=== PATIENT | female | born 1970 | race Caucasian/White ===

== ENCOUNTER 2016-07-20 21:11 | Emergency (ER) | payer BC, OTHER ==
[2016-07-20 21:18] VITALS: TEMP 98.1; BMI 28.3
--- NOTE | 2016-07-20 21:44 | PDOC ---
History of Present Illness - General Chief Complaint: Chest Pain Stated Complaint: DIZZYNESS/PALPATIONS Time Seen by Provider: 07/20/16 21:24 History Source: Patient, Significant Other Exam Limitations: No Limitations - History of Present Illness Initial Comments: 07/20/16 22:11 45yo Female patient presents to ED c/o dizziness, chest tightness, palpitations approximately 1 hr ago. Patient states while sitting on couch watching tv, she experienced a sudden onset of a malone from her shoulder to her head, she stood up adn immediately felt dizzy. Patient states she looked in the mirror and she was pale. At this time she called her boyfriend, who rushed home from work. Boyfriend states patient was panicking and extremely anxious so he brought her to ED for evaluation. Patient denies CP, Abd pain, back pain, n/v/d, fever, constipation, sweating, confusion, weakness, or any other complaints at this time. LNMP: Jul 09, 2016 Presenting Symptoms: Dizziness, Near-Syncope Timing/Duration: reports: gone now Severity/Quality: reports: tightness (chest) Location: reports: shoulder Chest Pain Radiation: reports: neck, other (head) Activities at Onset: reports: no specific activity Prior Chest Pain/Cardiac Workup: reports: No prior chest pain, No prior cardiac workup Modifying Factors: worse with: antacids, breathing, coughing, defecating, eating , exercise, lying down, morphine, movement, nitroglycerin, oxygen, palpation, rest, other Nitro Today/Relief: No: no nitro taken today, 0.4 mg x 1, 0.4 mg x 2, 0.4 mg x 3 , 0.4 mg x 4, provided by EMS, provided by ED, provided at home, no relief, mild relief, complete relief Beta Dino given by EMS (Core Measure): No Beta Dino taken at Home (Core Measure): No Beta Dino Contraindications (Core Measure): No: Not Prescribed, Allergy, Bradycardia (HR <60bpm), Advanced Heart Block, Pacemaker, Other Beta Dino indicated at this time? (Core Measure): No Associated Symptoms: Yes: Chest Pain/pressure, Dizziness, Headache, Palpitations. No: Abdominal pain, Back Pain, Cough, Diaphoresis, Edema, Fatigue , Fever/chills, Heartburn, Loss of Appetite, Nausea, Rash, Shortness of Breath, Swelling/lump in chest, Syncope, Vomiting, Weakness Past History - Travel Traveled outside of the country in the last 30 days: No Close contact w/someone who was outside of country & ill: No - Past Medical History Allergies/Adverse Reactions: Allergies Allergy/AdvReac Type Severity Reaction Status Date / Time No Known Allergies Allergy Verified 07/20/16 21:16 Home Medications: Ambulatory Orders No Home Medications 0 dose .ROUTE UTDICT 08/17/13 Other medical history: denies - Surgical History Abdominal Surgery: Yes ( x4) - Immunization History Immunization Up to Date: Yes - Psycho/Social/Smoking Cessation Hx Anxiety: No Suicidal Ideation: No Smoking Status: Yes Smoking History: Current every day smoker Number of Cigarettes Smoked Daily: 10 Information on smoking cessation initiated: No Hx Alcohol Use: No Drug/Substance Use Hx: No Substance Use Type: None Cardiac Specific PMH - Complaint Specific PMHX Abdominal Aortic Aneurysm: No Angina: No Cardiac Arrhythmia: No Cardiac Stent: No GERD: No Myocardial Infarction: No Pacemaker: No Pulmonary Embolus: No Valvular Heart Disease: No Peripheral Vascular Disease: No Review of Systems - Review of Systems Able to Perform ROS?: Yes Is the patient limited German proficient: No Constitutional: No: Chills, Fever Respiratory: No: Cough, Shortness of Breath, Stridor, Wheezing Cardiac (ROS): Yes: Palpitations, Chest Tightness. No: Chest Pain ABD/GI: No: Abdominal Distended, Constipated, Diarrhea, Nausea, Rectal Bleeding , Vomiting, Abdominal cramping : No: Burning, Dysuria, Discharge, Frequency, Flank Pain, Hematuria, Pain Musculoskeletal: No: Back Pain, Muscle Pain, Muscle Weakness, Neck Pain Integumentary: No: Bruising, Erythema, Flushing, Pruritus, Rash, Sweating Neurological: Yes: Headache, Dizziness. No: Numbness, Paresthesia, Seizure, Tingling, Tremors, Weakness, Ataxia Psychiatric: Yes: Anxiety. No: Depression Endocrine: No: Excessive Sweating Hematologic/Lymphatic: No: Easy Bleeding, Easy Bruising All Other Systems: Reviewed and Negative *Physical Exam - Vital Signs Last Vital Signs Temp Pulse Resp BP Pulse Ox 98.1 F 98 H 20 161/85 99 07/20/16 21:16 07/20/16 21:16 07/20/16 21:16 07/20/16 21:16 07/20/16 21:16 - Physical Exam General Appearance: Yes: Nourished, Appropriately Dressed. No: Apparent Distress, Mild Distress, Moderate Distress, Severe Distress HEENT: positive: EOMI, AVE, Normal ENT Inspection, Normal Voice, Symmetrical, TMs Normal, Pharynx Normal. negative: Nasal Congestion, Rhinorrhea, Sinus Tenderness, TM Bulging, TM Dull, TM Erythema Neck: positive: Trachea midline, Supple Respiratory/Chest: positive: Lungs Clear, Normal Breath Sounds. negative: Respiratory Distress, Labored Respiration Cardiovascular: positive: Regular Rhythm, Regular Rate. negative: Diastolic Murmur, Systolic Murmur, Irregularly Irregular Gastrointestinal/Abdominal: positive: Normal Bowel Sounds, Soft. negative: Tender, Organomegaly, Distended, Guarding, Rebound Lymphatic: negative: Adenopathy Musculoskeletal: positive: Normal Inspection. negative: CVA Tenderness Extremity: positive: Normal Capillary Refill, Normal Inspection, Normal Range of Motion. negative: Swelling Integumentary: positive: Normal Color, Dry, Warm Neurologic: positive: electronic warfare officer II-XII NML intact, Fully Oriented, Alert, Normal Mood/ Affect, Normal Response, Motor Strength 5/5 ED Treatment Course - LABORATORY CBC & Chemistry Diagram: 07/20/16 22:00 07/20/16 22:45 - ADDITIONAL ORDERS Additional order review: Laboratory Results 07/20/16 07/20/16 07/20/16 22:45 22:31 22:00 Sodium 140 Cancelled Potassium 4.1 Cancelled Chloride 105 Cancelled Carbon Dioxide 27 Cancelled Anion Gap 8 Cancelled BUN 13 D Cancelled Creatinine 1.4 H D Cancelled Creat Clearance w eGFR 40.66 Cancelled Random Glucose 108 H Cancelled Calcium 8.8 Cancelled Total Bilirubin 0.2 D Cancelled AST 11 L Cancelled ALT 20 Cancelled Alkaline Phosphatase 93 Cancelled Creatine Kinase 54 Cancelled Troponin I < 0.02 Cancelled Total Protein 7.0 Cancelled Albumin 3.5 Cancelled Urine Color Lt. yellow Urine Appearance Clear Urine pH 6.5 D Ur Specific [place] <= 1.005 Urine Protein Negative Urine Glucose (UA) Negative Urine Ketones Negative Urine Blood Negative Urine Nitrite Negative Urine Bilirubin Negative Urine Urobilinogen 0.2 e.u/dl Ur Leukocyte Esterase Negative Urine HCG, Qual Negative 07/20/16 22:00 RBC 4.96 MCV 82.3 MCHC 32.7 RDW 14.2 MPV 9.5 Neutrophils % 67.3 Lymphocytes % 23.3 Monocytes % 6.8 Eosinophils % 2.0 Basophils % 0.6 - RADIOLOGY Radiology Studies Ordered: Category Date Time Status HEAD CT WITHOUT CONTRAST [CT] Stat CT Scan 07/20/16 23:10 Completed CHEST PA & LAT [RAD] Stat Radiology 07/20/16 21:59 Completed - Medications Given in the ED: ED Medications Discontinued Medications Generic Name Dose Route Start Last Admin Trade Name Renetta PRN Reason Stop Dose Admin Sodium Chloride 500 mls @ 500 mls/hr 07/20/16 23:08 07/20/16 23:30 Normal Saline - IV 07/21/16 00:07 500 mls/hr ASDIR STA Administration *DC/Admit/Observation/Transfer Diagnosis at time of Disposition: Anxiety about health Chest pain Qualifiers: Chest pain type: unspecified Qualified Code(s): R07.9 - Chest pain, unspecified - Discharge Dispostion Disposition: HOME Condition at time of disposition: Good Admit: No - Patient Instructions Printed Discharge Instructions: DI for Atypical Chest Pain Additional Instructions: FOLLOW UP WITH YOUR PRIMARY CARE PROVIDER THIS WEEK. CALL TO SCHEDULE APPOINTMENT. GET REST. DRINK LOTS OF WATER. STOP SMOKING. NO WORK X 1 DAY. BE SURE TO FOLLOW UP THIS NEEDS FURTHER INVESTIGATION. Print Language: MALAY - Post Discharge Activity Work/School Note: Back to Work
--- NOTE | 2016-07-20 22:17 | PDOC ---
[id number] 07/20/16 21:16 07/20/16 21:16 07/20/16 21:16 07/20/16 21:16 07/20/16 21:16 ED Treatment Course - LABORATORY CBC & Chemistry Diagram: 07/20/16 22:00 07/20/16 22:45 Medical Decision Making - Medical Decision Making 07/20/16 22:17 agree with care from SELF PROPELLED HOT MIX ROLLER OPERATOR Héctor *DC/Admit/Observation/Transfer Diagnosis at time of Disposition: Chest pain, Anxiety about health - Discharge Dispostion Disposition: HOME Condition at time of disposition: Good - Referrals Referrals: Toy Mary MD [Primary Care Provider] - - Patient Instructions Printed Discharge Instructions: DI for Atypical Chest Pain Additional Instructions: FOLLOW UP WITH YOUR PRIMARY CARE PROVIDER THIS WEEK. CALL TO SCHEDULE APPOINTMENT. GET REST. DRINK LOTS OF WATER. STOP SMOKING. NO WORK X 1 DAY. BE SURE TO FOLLOW UP THIS NEEDS FURTHER INVESTIGATION. Print Language: MALDIVIAN - Post Discharge Activity Work/School Note: Back to Work
[2016-07-20 22:25] LABS: BASOPHIL 0.6 % (0-2.0); MCH 26.9 pg (25.7-33.7); MCHC 32.7 g/dl (32.0-36.0); MEAN CELL VOLUME 82.3 fl (80-96); MEAN PLT VOLUME 9.5 fl (7.5-11.1); NEUTROPHILS 67.3 % (42.8-82.8); PLATELET COUNT 233 K/MM3 (134-434); RDW 14.2 % (11.6-15.6); WHITE BLOOD COUNT 10.4 K/mm3 (4.0-10.0)
[2016-07-20 22:45] LABS: PH,URINE 6.5 (5.0-8.0); URINE APPEARANCE CLEAR; URINE BILIRUBIN NEGATIVE (NEGATIVE); URINE BLOOD NEGATIVE (NEGATIVE); URINE COLOR LT. YELLOW; URINE GLUCOSE (UA) NEGATIVE (NEGATIVE); URINE KETONE NEGATIVE (NEGATIVE); URINE LEUK ESTERASE NEGATIVE (NEGATIVE); URINE NITRITE NEGATIVE (NEGATIVE); URINE PROTEIN NEGATIVE (NEGATIVE); URINE UROBILINOGEN 0.2 E.U/dl E.U./dl (0.2-1.0)
[2016-07-20] MEDS ORDERED: SODIUM CHLORIDE 500 ML IV STA (23:08)
[2016-07-20 23:27] LABS: ALBUMIN 3.5 g/dl (3.4-5.0); ANION GAP 8 (8-16); BILIRUBIN,TOTAL 0.2 mg/dL (0.2-1.0); CALCIUM 8.8 mg/dL (8.5-10.1); CO2 27 mmol/L (21-32); CREATININE 1.4 mg/dL (0.55-1.02); GLUCOSE,RANDOM 108 mg/dL (74-106); SGOT/AST 11 U/L (15-37); SGPT/ALT 20 U/L (12-78)
[2016-07-20 23:30] LABS: ALK PHOS 93 U/L (45-117); TROPONIN I < 0.02 ng/ml (0.00-0.05)
[2016-07-21 00:20] VITALS: BP 107/67; PULSE 81
--- NOTE | 2016-07-21 09:35 | EKG ---
Test Reason : Blood Pressure : / mmHG Vent. Rate : 081 BPM Atrial Rate : 081 BPM P-R Int : 110 ms QRS Dur : 078 ms QT Int : 368 ms P-R-T Axes : 026 051 057 degrees QTc Int : 427 ms SINUS RHYTHM WITH SHORT SD OTHERWISE NORMAL ECG NO PREVIOUS ECGS AVAILABLE Confirmed by JAQUELIN GRAY MD ([id number]) on 07/21/2016 9:35:09 AM Referred By: Confirmed By:JAQUELIN GRAY MD
== END 2016-07-21 00:27 | disposition home or self-care (01) ==
LOC: JER 21:11
PROC: 3E0337Z Introduction of Electrolytic and Water Balance Substance into Peripheral Vein, Percutaneous Approach (ICD-10-PCS; principal; 2016-07-20)
DX: F41.8 Other specified anxiety disorders (principal)
CPT/HCPCS: 36415; 70450-TC; 71020-TC; 80053; 81003; 82550; 84484; 84703; 85025; 93005; 93010; 96360; 99284-25

== ENCOUNTER 2016-08-06 13:01 | Emergency (ER) | payer OTHER ==
[2016-08-06 13:07] VITALS: BP 127/92; PULSE 93; TEMP 98.7; BMI 28.3
[2016-08-06] MEDS ORDERED: KETOROLAC TROMETHAMINE 60 MG/2 ML VIAL ONE (13:50)
[2016-08-06] MEDS ORDERED: KETOROLAC TROMETHAMINE 60 MG/2 ML VIAL IM ONE (13:51)
--- NOTE | 2016-08-06 13:54 | PDOC ---
History of Present Illness - General Chief Complaint: Pain, Acute Stated Complaint: LEFT LEG PAIN Time Seen by Provider: 08/06/16 13:29 History Source: Patient Exam Limitations: No Limitations - History of Present Illness Initial Comments: 08/06/16 13:57 My Chief complaint: Lump left hip lateral upper thigh History of present illness: Patient is a 45-year-old female with no significant medical history here today complaining of the left lateral upper hip pain since yesterday. Patient reports that she went to work without limping and having any hip pain day progressed she started to feel pain in her left upper lateral hip/ thigh and started to limp and had to go home due to the pain. Patient did not take anything for pain. Patient reports that area felt like it was warm on the left lateral hip. She denies having any fever. Patient continues to have pain and left hip and has noticed that there was a raised area laterally and also anterior upper thigh. She denies any recent travel. Patient denies any history of DVTs. She denies any injury to her hip or leg left sided or doing any heavy lifting or exercise. She denies any left calf pain, or swelling or any recent travel, no tachycardia noted, no recent surgery. 08/06/16 14:15 08/06/16 19:51 Timing/Duration: getting worse Severity: moderate Associated Symptoms: reports: other (limping left leg ) Past History - Past Medical History Allergies/Adverse Reactions: Allergies Allergy/AdvReac Type Severity Reaction Status Date / Time No Known Allergies Allergy Verified 08/06/16 13:07 Home Medications: Ambulatory Orders No Home Medications 0 dose .ROUTE UTDICT 08/17/13 Naproxen [Naprosyn -] 500 mg PO BID PRN #14 tablet MDD 2 08/06/16 - Surgical History Abdominal Surgery: Yes ( x4) - Immunization History Immunization Up to Date: Yes - Psycho/Social/Smoking Cessation Hx Anxiety: No Suicidal Ideation: No Smoking Status: Yes Smoking History: Current every day smoker Number of Cigarettes Smoked Daily: 10 Information on smoking cessation initiated: Yes 'Breaking Loose' booklet given: 08/06/16 Hx Alcohol Use: No Drug/Substance Use Hx: No Substance Use Type: None Review of Systems - Review of Systems Able to Perform ROS?: Yes Constitutional: No: Symptoms Reported HEENTM: No: Symptoms Reported Respiratory: No: Symptoms reported Cardiac (ROS): No: Symptoms Reported ABD/GI: No: Symptoms Reported : No: Symptoms Reported Musculoskeletal: Yes: Other (left laterl hip/thigh pain with raised area appreciated /proximal anterior thigh pain with raised area appreciated and tender) Integumentary: Yes: Other (raised tender area left lateral hip/thigh and proximal anterior thigh) *Physical Exam - Vital Signs Last Vital Signs Temp Pulse Resp BP Pulse Ox 98.7 F 93 H 18 127/92 98 08/06/16 13:06 08/06/16 13:06 08/06/16 13:06 08/06/16 13:06 08/06/16 13:06 - Physical Exam General Appearance: Yes: Appropriately Dressed Respiratory/Chest: positive: Lungs Clear, Normal Breath Sounds Cardiovascular: positive: Regular Rhythm, Regular Rate, S1, S2 Vascular Pulses: Doralis-Pedis (L): 4+ Comments:: 08/06/16 14:13 femoral pulse 3 + left Musculoskeletal: positive: Normal Inspection. negative: CVA Tenderness, CVA Tenderness (R), CVA Tenderness (L), Muscle Spasm, Vertebral Tenderness Extremity: positive: Normal Capillary Refill, Tender (left lateral proximal hip/ thigh, anterior proximal thigh) Integumentary: positive: Normal Color, Swelling (left lateral proximal thigh/ hip and anterior proximal thigh tender ) Neurologic: positive: Alert, Normal Response, Motor Strength 5/5 (left leg), Respond to painful stimul (left leg ), Responsive. negative: Sensory Deficit ( left leg) ED Treatment Course - LABORATORY CBC & Chemistry Diagram: 08/06/16 14:48 Medical Decision Making - Medical Decision Making 08/06/16 14:10 : Patient is a 45-year-old female with no significant medical history here today complaining of the left lateral upper hip pain since yesterday. Patient reports that she went to work without limping and having any hip pain day progressed she started to feel pain in her left upper lateral hip and started to limp and had to go home due to the pain. Patient did not take anything for pain. Patient reports that area felt like it was warm on the left lateral hip. She denies having any fever. Patient continues to have pain and left hip and has noticed that there was a raised area laterally and also anterior upper thigh. She denies any recent travel. Patient denies any history of DVTs. Denies any injury to her left hip or leg or doing any heavy lifting or exercise. She denies any chance of her menstrual cycle currently 08/06/16 14:15 ' left lateral thip/upper thigh raised tender area/ left anterior proximal thigh r/o [place] abnormality Left lateral thigh/anterior proximal thigh pain PLAN: toradol 60 mg IM now xray left lateral hip/thigh some visualized lower spine degenerative changes 08/06/16 14:17 08/06/16 14:45 CBC with diff 08/06/16 15:40 Laboratory Tests 08/06/16 14:48 WBC 11.0 H RBC 4.89 Hgb 13.6 Hct 39.6 MCV 80.9 MCHC 34.3 RDW 14.4 Plt Count 170 D MPV 8.5 D Neutrophils % 72.4 Lymphocytes % 18.6 D Monocytes % 7.0 Eosinophils % 1.6 Basophils % 0.4 08/06/16 15:45 08/06/16 19:51 08/06/16 19:52 *DC/Admit/Observation/Transfer Diagnosis at time of Disposition: Left thigh pain - Discharge Dispostion Disposition: HOME Condition at time of disposition: Stable - Prescriptions Prescriptions: Naproxen [Naprosyn -] 500 mg PO BID PRN #14 tablet MDD 2 PRN Reason: Pain - Referrals Referrals: Toy Mary MD [Primary Care Provider] - Shad Mann MD [Staff Physician] - - Patient Instructions Additional Instructions: Return to emergency room if any fever or any redness of the area that is painful Avoid any strenuous activities or long ambulation Follow-up with orthopedist for further evaluation Patient voiced understanding of discharge instructions and all questions were answered - Post Discharge Activity Work/School Note: Back to Work
[2016-08-06 15:08] LABS: BASOPHIL 0.4 % (0-2.0); EOSINOPHIL 1.6 % (0-4.5); MCH 27.7 pg (25.7-33.7); MCHC 34.3 g/dl (32.0-36.0); MEAN CELL VOLUME 80.9 fl (80-96); MEAN PLT VOLUME 8.5 fl (7.5-11.1); NEUTROPHILS 72.4 % (42.8-82.8); PLATELET COUNT 170 K/MM3 (134-434); RDW 14.4 % (11.6-15.6)
== END 2016-08-06 15:56 | disposition home or self-care (01) ==
LOC: JERFT 13:01
PROC: 3E0233Z Introduction of Anti-inflammatory into Muscle, Percutaneous Approach (ICD-10-PCS; principal; 2016-08-06)
DX: M79.652 Pain in left thigh (principal); F17.210 Nicotine dependence, cigarettes, uncomplicated
CPT/HCPCS: 36415; 73523-TC; 85025; 96372; 99281-25

== ENCOUNTER 2019-03-23 23:08 | Emergency (ER) | payer OTHER ==
[2019-03-23 23:36] VITALS: BP 114/80; PULSE 83; TEMP 98.5; BMI 62.4
--- NOTE | 2019-03-23 23:40 | PDOC ---
Attending Attestation - Resident Resident Name: [email or web address] - HPI HPI: 03/24/19 01:09 Pt presents to the ED complaining of "tightness and stiffness" in her entire upper body. States that this began suddenly, about two hours ago, and that it was intermittent for two hours and has now resolved. 03/24/19 01:10 - Physicial Exam PE: 03/24/19 01:12 Agree with resident exam. Patient is alert and oriented and in no acute distress. Cv: rrr no m/r/g Pulm: CTA b/l abdomen: soft, non tender, non distended. - Medical Decision Making 03/24/19 01:21 Pt presents to the ED complaining of "stiffness" to her entire upper body that has now resolved. Patient is extremely low risk for cardiovascular disease-- heart score is 1. Labs are within normal limits and symptoms have resolved. Will discharge home.
--- NOTE | 2019-03-24 00:45 | PDOC ---
History of Present Illness - General Chief Complaint: Chest Pain Stated Complaint: AXIEXTY/CHEST PAIN Time Seen by Provider: 03/23/19 23:27 - History of Present Illness Initial Comments: 03/24/19 00:40 48 y/o F no significant medical hx presenting today with 1-2 hrs of chest tightness radiating to her left arm. She was sitting down when she felt a sudden wave of lightheadedness and numbness at the back of her head. The feeling was followed by chest tightness and general upper body numbness. She rates the pain as a 4/10 in severity. She denies any cocaine use but had a few puffs of marijuana prior to symptoms occurring.She denies any nausea, vomiting or diaphoresisor pain radiating to her back. She denies any falls, trauma or LOC. She was brought in by EMS. Past History - Past Medical History Allergies/Adverse Reactions: Allergies Allergy/AdvReac Type Severity Reaction Status Date / Time No Known Allergies Allergy Verified 08/06/16 13:07 Home Medications: Ambulatory Orders NK [No Known Home Medication] 03/23/19 COPD: No - Surgical History Abdominal Surgery: Yes ( x4) - Immunization History Immunization Up to Date: Yes - Suicide/Smoking/Psychosocial Hx Smoking Status: Yes Smoking History: Current every day smoker Have you smoked in the past 12 months: Yes Number of Cigarettes Smoked Daily: 4 Information on smoking cessation initiated: Yes 'Breaking Loose' booklet given: 08/06/16 Hx Alcohol Use: No Drug/Substance Use Hx: Yes Substance Use Type: None Review of Systems - Review of Systems Constitutional: No: Chills, Diaphoresis, Fever HEENTM: No: Blurred Vision Respiratory: No: Cough, Shortness of Breath Cardiac (ROS): Yes: Symptoms Reported ABD/GI: No: Abdominal Distended, Nausea, Vomiting : No: Burning, Dysuria Musculoskeletal: No: Back Pain Integumentary: No: Bruising, Change in Color Neurological: No: Headache, Numbness *Physical Exam - Vital Signs Last Vital Signs Temp Pulse Resp BP Pulse Ox 98.5 F 83 20 114/80 95 03/23/19 23:31 03/23/19 23:31 03/23/19 23:31 03/23/19 23:31 03/23/19 23:31 - Physical Exam General Appearance: Yes: Nourished, Appropriately Dressed. No: Apparent Distress HEENT: positive: EOMI, Normal Voice Neck: positive: Supple. negative: Tender, Rigid, Decreased range of motion, Rigidity Respiratory/Chest: positive: Lungs Clear, Crackles, Other (faint crackles at lung bases). negative: Chest Tender Cardiovascular: positive: Regular Rhythm, Regular Rate, S1, S2. negative: Edema , JVD, Murmur Vascular Pulses: Dorsalis-Pedis (R): 2+, Doralis-Pedis (L): 2+ Gastrointestinal/Abdominal: positive: Normal Bowel Sounds, Soft, Protuberent. negative: Distended, Guarding, Tenderness Musculoskeletal: positive: Normal Inspection. negative: CVA Tenderness Extremity: positive: Normal Capillary Refill, Normal Inspection, Normal Range of Motion Integumentary: positive: Normal Color, Dry, Warm Neurologic: positive: associate automation engineer II-XII NML intact, Fully Oriented, Alert, Normal Mood/ Affect, Normal Response, Motor Strength / ED Treatment Course - LABORATORY CBC & Chemistry Diagram: 03/24/19 00:12 Medical Decision Making - Medical Decision Making 03/24/19 00:45 48 y/o F no significant medical hx presenting today with 1-2 hrs of chest tightness radiating to her left arm EKG, CMP, serum preg, troponin EKG: NSR with sinus arrhythmia, normal EKG, no ST elevations Troponin <0.02 Pt to be discharged with instructions to follow up with primary care. Presentation of chest pain was atypical and EKG was normal. *DC/Admit/Observation/Transfer Diagnosis at time of Disposition: Chest pain Qualifiers: Chest pain type: unspecified Qualified Code(s): R07.9 - Chest pain, unspecified - Discharge Dispostion Disposition: HOME Condition at time of disposition: Stable Decision to Admit order: No - Referrals - Patient Instructions Printed Discharge Instructions: DI for Atypical Chest Pain Additional Instructions: For the next few days, avoid physical activities that bring on chest pain. Continue physical activities as directed. Do not smoke and avoid drinking alcohol. Only take [id number] or prescription medicine for pain or discomfort. We have provided you with information for several doctors you can contact to establish care and for follow up. It is important that you see them by next week. Your care is not complete until you do so. If there is any problem keeping an appointment, please call to reschedule. SEEK MEDICAL CARE IF: Your chest pain/tightness does not go away, even after treatment. SEEK IMMEDIATE MEDICAL CARE IF: You have increased chest pain or pain that spreads to your arm, neck, jaw, back, or abdomen. You develop shortness of breath, an increasing cough, or you start coughing up blood. You have severe back or abdominal pain, feel nauseous, or vomit You develop severe weakness, fainting, or chills. You have a fever. THESE ARE EMERGENCIES - Do not drive yourself to the hospital. - Post Discharge Activity
[2019-03-24 00:59] LABS: ALBUMIN 3.6 g/dl (3.4-5.0); BILIRUBIN,TOTAL 0.5 mg/dL (0.2-1); BLOOD UREA NITROGEN 13.3 mg/dL (7-18); CALCIUM 8.8 mg/dL (8.5-10.1); CREATININE 0.9 mg/dL (0.55-1.3); TOT PROT 7.3 g/dl (6.4-8.2)
--- NOTE | 2019-03-24 15:00 | EKG ---
Test Reason : Blood Pressure : / mmHG Vent. Rate : 077 BPM Atrial Rate : 077 BPM P-R Int : 120 ms QRS Dur : 080 ms QT Int : 386 ms P-R-T Axes : 052 060 057 degrees QTc Int : 436 ms NORMAL SINUS RHYTHM WITH SINUS ARRHYTHMIA NORMAL ECG WHEN COMPARED WITH ECG OF 20-JUL-2016 21:17, NO SIGNIFICANT CHANGE WAS FOUND Confirmed by MD CHANCE, ANALIA ([id number]) on 03/24/2019 3:00:17 PM Referred By: Confirmed By:ANALIA FLETCHER MD
== END 2019-03-24 01:39 | disposition home or self-care (01) ==
LOC: JER 23:08
DX: R07.9 Chest pain, unspecified (principal); F41.9 Anxiety disorder, unspecified
CPT/HCPCS: 36415; 80053; 84484; 84703; 93005; 93010; 99282-25

== ENCOUNTER 2020-04-07 16:13 | Emergency (ER) | payer OTHER ==
[2020-04-07 16:19] VITALS: BP 123/79; PULSE 102; TEMP 97.8; BMI 25.2
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
== END 2020-04-07 18:35 | disposition home or self-care (01) ==
LOC: JERFT 16:13
DX: S00.83XA Contusion of other part of head, initial encounter (principal)
CPT/HCPCS: 70450-TC; 70486-TC; 99284-25

== ENCOUNTER 2022-04-05 06:28 | Emergency (ER) | payer OTHER ==
[2022-04-05 06:37] VITALS: BP 125/95; PULSE 84; RESP 18; TEMP 98.1; BMI 26.4
[2022-04-05] MEDS ORDERED: ACETAMINOPHEN 325 MG TABLET (FP) PO ONE (07:44)
[2022-04-05] MEDS ORDERED: ACETAMINOPHEN 325 MG TABLET (FP) ONE (07:59)
[2022-04-05 08:23] LABS: EPI CELLS >36 /uL (0-25.1); HYALINE CASTS 1 /uL (0-3.1); PH,URINE 6.5 (5.0-8.0); URINE APPEARANCE CLEAR; URINE BACTERIA 1458 /uL (0-1359); URINE BILIRUBIN NEGATIVE (NEGATIVE); URINE COLOR YELLOW; URINE GLUCOSE (UA) NEGATIVE (NEGATIVE); URINE KETONE NEGATIVE (NEGATIVE); URINE LEUK ESTERASE 1+ (NEGATIVE); URINE NITRITE NEGATIVE (NEGATIVE); URINE PROTEIN 1+ (NEGATIVE); URINE RBC 860 /uL (0-23.9); URINE WBC 71 /uL (0-25.8)
[2022-04-05 08:45] LABS: BASO % 0.3 % (0-2.0); EOS % 0.2 % (0-4.5); HEMATOCRIT 41.2 % (32.4-45.2); HEMOGLOBIN 13.5 GM/dL (10.7-15.3); LYMPH % 9.5 % (8-40); MCH 27.1 pg (25.7-33.7); MCHC 32.9 g/dl (32.0-36.0); MEAN CELL VOLUME 82.4 fl (80-96); MEAN PLT VOLUME 8.7 fl (7.5-11.1); MONO % 4.5 % (3.8-10.2); NEUT % 85.5 % (42.8-82.8); PLATELET COUNT 205 10^3/uL (134-434); RDW 15.6 % (11.6-15.6); WHITE BLOOD COUNT 13.9 K/mm3 (4.0-10.0)
[2022-04-05 09:14] LABS: CALCIUM 9.1 mg/dL (8.5-10.1)
[2022-04-05 09:15] LABS: ALBUMIN 3.7 g/dl (3.4-5.0); BLOOD UREA NITROGEN 11.3 mg/dL (7-18)
[2022-04-05 09:18] LABS: CREATININE 0.8 mg/dL (0.55-1.3)
[2022-04-05 09:19] LABS: BILIRUBIN,TOTAL 0.4 mg/dL (0.2-1)
[2022-04-05 09:20] LABS: TOT PROT 7.3 g/dl (6.4-8.2)
[2022-04-05] MEDS ORDERED: KETOROLAC TROMETHAMINE 30 MG/1 ML VIAL IM ONE (09:55)
[2022-04-05] MEDS ORDERED: KETOROLAC TROMETHAMINE 30 MG/1 ML VIAL ONE (10:17)
== END 2022-04-05 11:20 | disposition home or self-care (01) ==
LOC: JER 06:28
PROC: 3E0233Z Introduction of Anti-inflammatory into Muscle, Percutaneous Approach (ICD-10-PCS; principal; 2022-04-05)
DX: R10.2 Pelvic and perineal pain (principal)
CPT/HCPCS: 36415; 76830-TC; 80053; 81003; 83605; 84703; 85025; 87086; 87186; 87491; 87591; 99285-25